=== PATIENT | male | born 1960 ===

== ENCOUNTER 2020-12-11 06:58 | Day surgery (SDC) | payer OTHER ==
[~2020-12-11 06:58] MED LIST: TYLENOL PO; VASOTEC10 MG PO
== END 2020-12-12 01:00 | disposition home or self-care (01) ==
LOC: CIR.AMB 06:58
PROVIDERS: ATTEND Orthopaedic Surgery Hand Surgery
DX: S52.692A Other fracture of lower end of left ulna, initial encounter for closed fracture (principal); S52.122A Displaced fracture of head of left radius, initial encounter for closed fracture; Z20.822 Contact with and (suspected) exposure to COVID-19
CPT/HCPCS: 24685; 24655; C1776